=== PATIENT | female | born 1970 | race Caucasian/White ===

== ENCOUNTER 2021-06-26 12:55 | Emergency (ER) | payer OTHER ==
[~2021-06-26] VITALS: Ht 162.6 cm; Wt 84.0 kg
[2021-06-26] MEDS ORDERED: IV NORMAL SALINE 1000ML BAG 1,000 ML IV SCH (13:15)
[2021-06-26 13:23] LABS: BILIRUBIN,URINE NEGATIVE (NEG); CLARITY,URINE CLEAR; COLOR,URINE YELLOW; NITRITE,URINE NEGATIVE (NEG); PROTEIN,URINE NEGATIVE (NEG-TRACE); UROBILINOGEN,URINE 0.2 mg/dL (0.2 mg/dL)
[2021-06-26 13:28] LABS: BACTERIA,URINE MODERATE /HPF (0-FEW); RBC,URINE 0 /HPF (0-2)
[2021-06-26] MEDS ORDERED: ONDANSETRON PF 4 MG/2 ML VIAL. IVP ONE (13:30)
[2021-06-26] MEDS ORDERED: MECLIZINE HCL 12.5 MG TABLET. PO ONE (13:30)
--- NOTE | 2021-06-26 13:33 | PHYS DOC ---
Past Medical History Past Surgical History: No Surgical History Smoking Status: Never Smoker Alcohol Use: None General Adult EDM: Chief Complaint: DIZZY/LIGHT HEADED HPI: HPI: Patient is a 50 year old male who presents with dizziness, nausea. Patient states that she was at work walking when all of a sudden she became "floaty". Patient states she sat down at her desk and coworker states that when she came in she was visibly sweaty and pale. Patient denied any chest pain, shortness of breath, vomiting. Patient states "when I woke up this morning I could tell it was starting to get headaches I took some ibuprofen which relieved the pain". Denies headache at this time. Patient does have a history of migraines. Patient denies sudden onset, thunderclap. Denies recent illness. Patient states that dizziness is improved when she is lying down and worsened with sitting up or standing. Denies all medical history or daily medications. Patient's been fully vaccinated for Covid 19. Review of Systems: Review of Systems: ROS At least 10 ROS systems have been reviewed and are negative except as documented in the HPI. General: Negative except as outlined in HPI above. Skin: Negative except as outlined in HPI above. HEENT: Negative except as outlined in HPI above. Neck: Negative except as outlined in HPI above. Respiratory: Negative except as outlined in HPI above.. Cardiovascular: Negative except as outlined in HPI above. Abdomen: Negative except as outlined in HPI above. : Negative except as outlined in HPI above. Back/MSK: Negative except as outlined in HPI above. Neuro: Negative except as outlined in HPI above. Psych: Negative except as outlined in HPI above. Heart Score: C/O Chest Pain: No Risk Factors: Risk Factors: DM, Current or recent (<one month) smoker, HTN, HLP, family history of CAD, obesity. Risk Scores: Score 0 - 3: 2.5% MACE over next 6 weeks - Discharge Home Score 4 - 6: 20.3% MACE over next 6 weeks - Admit for Clinical Observation Score 7 - 10: 72.7% MACE over next 6 weeks - Early Invasive Strategies Current Medications: Current Medications Medications (Trade) Dose Ordered Sig/Ruy Start Time Stop Time Status Last Admin Dose Admin Meclizine HCl (Antivert) 25 mg 1X ONCE 06/26/21 13:30 06/26/21 13:31 Ondansetron HCl (Zofran) 4 mg 1X ONCE 06/26/21 13:30 06/26/21 13:31 Sodium Chloride 1,000 ml @ 1,000 mls/hr Q1H 06/26/21 13:15 06/26/21 14:14 Allergies: Allergies: Allergies Coded Allergies Type Severity Reaction Last Updated Verified No Known Drug Allergies 06/26/21 No Physical Exam: PE: Constitutional: Well developed, well nourished, no acute distress, non-toxic appearance. [] HENT: Normocephalic, atraumatic, bilateral external ears normal, oropharynx moist, no oral exudates, nose normal. [] Eyes: PERRLA, EOMI, conjunctiva normal, no discharge. [] Neck: Normal range of motion, no tenderness, supple, no stridor. [] Cardiovascular:Heart rate regular rhythm, no murmur [] Lungs & Thorax: Bilateral breath sounds clear to auscultation [] Abdomen: Bowel sounds normal, soft, no tenderness, no masses, no pulsatile masses. [] Skin: Warm, dry, no erythema, no rash. [] Back: No tenderness, no CVA tenderness. [] Extremities: No tenderness, no cyanosis, no clubbing, ROM intact, no edema. [] Neurologic: Alert and oriented X 3, normal motor function, normal sensory function, no focal deficits noted. [] Psychologic: Affect normal, judgement normal, mood normal. [] Current Patient Data: Labs: Laboratory Tests Test 06/26/21 13:14 POC Urine HCG, Qualitative Hcg negative (Negative) Vital Signs: Vital Signs Date Time Temp Pulse Resp B/P (MAP) Pulse Ox O2 Delivery O2 Flow Rate FiO2 06/26/21 12:59 97.7 72 16 126/69 (88) 98 Room Air 97.7 EKG: EKG: [] Radiology/Procedures: Radiology/Procedures: []Single view of the chest. 06/26/2021 1:22 PM Indication: Reason: DIZZINESS / Spl. Instructions: / History: Comparison: None Findings: There is no focal consolidation. There is no pleural effusion or pneumothorax. The cardiomediastinal silhouette and pulmonary vasculature are within normal limits. No acute osseous abnormalities are seen. Impression: No evidence of acute cardiopulmonary process. Electronically signed by: Mc Stern MD (06/26/2021 1:37 PM) [id number] CT head without contrast PQRS statement: CT scans at this facility use dose reduction including either automated exposure control, iterative reconstructions, and /or weight based radiation dosing via mA and kV modification when appropriate to reduce radiation dose to as low as reasonably achievable. HISTORY: Dizziness. FINDINGS: Subcentimeter ossification along the right tentorium likely a small ossified meningioma of doubtful significance, this exerts no mass effect. No intracranial hemorrhage, mass, hydrocephalus, extra-axial fluid collections or infarction. Imaged orbits, mastoids and bones are normal. IMPRESSION: No acute abnormality. Electronically signed by: Jean Vicente MD (06/26/2021 1:54 PM) [facility] Course & Med Decision Making: Course & Med Decision Making Pertinent Labs and Imaging studies reviewed. (See chart for details) [] 50-year-old female presents with dizziness and nausea. Work-up in ER consists of labs, CT head, chest x-ray, urinalysis. Patient's denying pain. Patient does report a headache this morning but took ibuprofen which relieved pain. Denies sudden onset, thunderclap. Patient also has a history of migraine headaches. Patient's dizziness is increased with sitting up or movement. Orthostatics were negative. Patient's nausea and dizziness treated in the ER. Neuro exam unremarkable. Denies weakness or sensation changes. Physical exam was unremarkable. All labs unremarkable. Chest x-ray unremarkable. CT head unremarkable. Discussed all results with patient. Patient symptoms have resolved after medication. Patient symptoms are most likely from vertigo. Advised patient to follow-up with her PCP. Sending patient home with Zofran and meclizine to help with symptoms. Discussed with patient strict return precautions. Patient voices understanding of discharge instructions. Patient is hemodynamically stable upon disposition. Isiaon Disclaimer: Brian Disclaimer: This electronic medical record was generated, in whole or in part, using a voice recognition dictation system. Departure Departure Impression: Primary Impression: Dizziness Additional Impression: Nausea Disposition: HOME / SELF CARE / HOMELESS Condition: STABLE Patient Instructions: Vertigo, [id number] Additional Instructions: You are seen in the emergency room for dizziness and nausea. All of your labs were unremarkable. We performed a CT of your head and chest x-ray which were both also unremarkable. You were given medication to treat nausea and dizziness, which improved your symptoms. Sending you home with prescriptions for nausea and dizziness. Increase your fluids. Please call your PCP to make a follow-up appointment in the next 2 to 3 days. Return to the emergency room if you have worsening symptoms or concerns/ EMERGENCY DEPARTMENT GENERAL DISCHARGE INSTRUCTIONS Thank you for coming to [facility] Emergency Department (ED) today and trusting us with you care. We trust that you had a positive experience in our Emergency Department. If you wish to speak to the department management, you may call the Director at [phone]. YOUR FOLLOW UP INSTRUCTIONS ARE FOLLOWS: 1. Do you have a private Doctor? If you do not have a private doctor, please ask for a resource list of physicians or clinics that may be able to assist you with follow up care. 2. The Emergency Physicain has interpreted your x-rays. The X-Ray specialist will also review them. If there is a change in the findings, you will be notified in 48 hours when at all possible. 3. A lab test or culture has been done, your results will be reviewed and you will be notified if you need a change in treatment. ADDITIONAL INSTRUCTIONS AND INFORMATION: 1. Your care today has been supervised by a physician who is specially trained in emergency care. Many problems require more than one evaluation for a complete diagnosis and treatment. We recommend that you schedule your follow up appointment as recommended to ensure complete treatment of you illness or injury. If you are unable to obtain follow up care and continue to have a problem, or if your condition worsens, we recommend that you return to the ED. 2. We are not able to safely determine your condition over the phone nor are we able to give sound medical advice over the phone. For these safety reasons, if you call for medical advice we will ask you to come to the ED for further evaluation. 3. If you have any questions regarding these discharge instructions please call the ED at [phone]. SAFETY INFORMATION: In the interest of safety, wellness, and injury prevention; we encourage you to wear your sealbelt, if you smoke; quite smoking, and we encourage family to use a protective helmet for bicycling and other sporting events that present an increased risk for head injury. IF YOUR SYMPTOMS WORSEN OR NEW SYMPTOMS DEVELOP, OR YOU HAVE CONCERNS ABOUT YOUR CONDITION; OR IF YOUR CONDITION WORSENS WHILE YOU ARE WAITING FOR YOUR FOLLOW UP APPOINTMENT; EITHER CONTACT YOUR PRIMARY CARE DOCTOR, THE PHYSICIAN WHOSE NAME AND NUMBER YOU WERE Lennox LOPEZ, OR RETURN TO THE ED IMMEDIATELY. Scripts Ondansetron (ONDANSETRON ODT) 4 Mg Tab.rapdis 1 TAB PO PRN Q6-8HRS PRN for NAUSEA/VOMITING for 7 Days, #30 TAB 0 Refills Prov: MELODY PHILLIPS APRN 06/26/21 Meclizine Hcl (MECLIZINE HCL) 25 Mg Tablet 1 TAB PO TID for DIZZINESS for 10 Days, #30 TAB Prov: MELODY PHILLIPS APRN 06/26/21 MELODY PHILLIPS APRN Jun 26, 2021 13:32
[2021-06-26 13:38] VITALS: BP 109/55
--- NOTE | 2021-06-26 13:39 | RAD ---
Single view of the chest. 06/26/2021 1:22 PM Indication: Reason: DIZZINESS / Spl. Instructions: / History: Comparison: None Findings: There is no focal consolidation. There is no pleural effusion or pneumothorax. The cardiome diastinal silhouette and pulmonary vasculature are within normal limits. No acute osseous abnormaliti es are seen. Impression: No evidence of acute cardiopulmonary process. Electronically signed by: Mc Stern MD (06/26/2021 1:37 PM) [id number]
[2021-06-26 13:44] LABS: BASO % 1 % (0-3); EOS % 1 % (0-3); HEMATOCRIT 40.3 % (36.0-47.0); HEMOGLOBIN 13.4 g/dL (12.0-15.5); LYMPH # 1.2 x10^3/uL (1.0-4.8); LYMPH % 19 % (24-48); MEAN CORPUSCULAR HEMOGLOBIN 30 pg (25-35); MEAN CORPUSCULAR HGB CONC 33 g/dL (31-37); MEAN CORPUSCULAR VOLUME 89 fL (79-100); MONO # 0.4 x10^3/uL (0.0-1.1); MONO % 6 % (0-9); NEUT # 4.8 x10^3/uL (1.8-7.7); NEUT % 75 % (31-73); PLATELET COUNT 263 x10^3/uL (140-400); RED BLOOD COUNT 4.52 x10^6/uL (3.50-5.40); RED CELL DISTRIBUTION WIDTH 12.4 % (11.5-14.5); WHITE BLOOD COUNT 6.5 x10^3/uL (4.0-11.0)
[2021-06-26 13:55] LABS: CALCIUM 8.9 mg/dL (8.5-10.1); CREATININE 0.8 mg/dL (0.6-1.0); GFR 75.9; POTASSIUM 3.7 mmol/L (3.5-5.1)
--- NOTE | 2021-06-26 13:57 | RAD ---
CT head without contrast PQRS statement: CT scans at this facility use dose reduction including either automated exposure cont rol, iterative reconstructions, and /or weight based radiation dosing via mA and kV modification when appropriate to reduce radiation dose to as low as reasonably achievable. HISTORY: Dizziness. FINDINGS: Subcentimeter ossification along the right tentorium likely a small ossified meningioma of doubtful significance, this exerts no mass effect. No intracranial hemorrhage, mass, hydrocephalus, e xtra-axial fluid collections or infarction. Imaged orbits, mastoids and bones are normal. IMPRESSION: No acute abnormality. Electronically signed by: Jean Vicente MD (06/26/2021 1:54 PM) [facility]
[2021-06-26 14:01] LABS: ALBUMIN 4.2 g/dL (3.4-5.0); ALBUMIN/GLOBULIN RATIO 1.2 (1.0-1.7); MAGNESIUM 2.3 mg/dL (1.8-2.4); TOTAL BILIRUBIN 0.4 mg/dL (0.2-1.0); TOTAL PROTEIN 7.6 g/dL (6.4-8.2)
--- NOTE | 2021-06-26 14:04 | EKG ---
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
[2021-06-26] MEDS ORDERED: MECL-75 PO (14:32)
[2021-06-26] MEDS ORDERED: ONDA4TAB12 PO (14:32)
== END 2021-06-26 14:47 | disposition home or self-care (01) ==
LOC: EDBD 12:55 → ER 12:55
DX: R42 Dizziness and giddiness (principal); R11.0 Nausea
CPT/HCPCS: 36415; 70450; 71045; 80053; 81001; 81025; 83735; 83880; 84484; 85025; 87086; 93005; 96361; 96374; 99285; J2405; J7030; J8597